=== PATIENT | female | born 1990 | race Caucasian/White ===

== ENCOUNTER 2022-01-21 13:34 | Emergency (ER) | payer MEDICAID, OTHER ==
[~2022-01-21] VITALS: Ht 157.5 cm; Wt 54.4 kg
[2022-01-21 13:52] VITALS: BP_SYST 115
[2022-01-21 14:37] LABS: BASOPHILS # (AUTO) 0.1 K/uL (0.0-0.2); BASOPHILS % (AUTO) 0.8 % (0.0-2.0); EOSINOPHILS # (AUTO) 0.5 K/uL (0.0-0.4); EOSINOPHILS % (AUTO) 4.7 % (0.0-4.0); HEMATOCRIT 37.4 % (36-48); LYMPHOCYTES # (AUTO) 3.1 K/uL (1.0-5.5); MEAN CORPUSCULAR HEMOGLOBIN 31 pg (27-31); MEAN CORPUSCULAR HGB CONC 35 % (32-36); MEAN CORPUSCULAR VOLUME 90 fL (79.0-98.0); MONOCYTES # (AUTO) 0.6 K/uL (0.0-1.0); NEUTROPHILS # (AUTO) 7.1 K/uL (1.8-7.7); NEUTROPHILS % (AUTO) 62.5 % (40.0-70.0); PLATELET COUNT (AUTO) 437 K/uL (130-430); RED BLOOD CELL COUNT(AUTO) 4.15 MIL/uL (4.2-6.2); RED CELL DISTRIBUTION WIDTH 13.1 % (9.0-15.0); WHITE BLOOD COUNT (AUTO) 11.3 K/uL (4.8-10.8)
[2022-01-21 14:43] LABS: ANION GAP 11 (5-15); CALCIUM 9.2 mg/dL (8.4-11.0); CHLORIDE 102 mmol/L (98-107); GLUCOSE 99 mg/dL (70-99); POTASSIUM 4.3 mmol/L (3.5-5.1); SODIUM SERUM 141 mmol/L (136-145); UREA NITROGEN, BLOOD 16 mg/dL (8-21)
[2022-01-21 14:43] LABS: BILIRUBIN,URINE NEGATIVE (NEGATIVE); BLOOD, URINE NEGATIVE (NEGATIVE); CLARITY/URINE CLEAR (CLEAR); COLOR,URINE YELLOW (YELLOW); GLUCOSE,URINE NEGATIVE (NEGATIVE); KETONES,URINE NEGATIVE (NEGATIVE); LEUKOCYTE ESTERASE ,URINE NEGATIVE (NEGATIVE); NITRITE, URINE NEGATIVE (NEGATIVE); PH,URINE 6.5 (5.0-8.0); PROTEIN URINE NEGATIVE (NEGATIVE); UROBILINOGEN,URINE 0.2 (0.2-1.0)
[2022-01-21 14:44] LABS: GFR AFRICAN AMERICAN 93 mL/min (>90)
[2022-01-21 14:48] LABS: ALANINE AMINOTRANSFERASE 35 U/L (12-78); ALBUMIN 3.7 g/dL (3.4-4.8); AMYLASE 63 U/L (0-100); ASPARTATE AMINOTRANSFERASE 19 U/L (10-37); LIPASE 255 U/L (73-393)
[2022-01-21 14:49] LABS: TOTAL BILIRUBIN < 0.1 mg/dL (0.0-1.0)
[2022-01-21 14:50] LABS: C-REACTIVE PROTEIN QUANT 0.3 mg/dL (0-0.5)
[2022-01-21] MEDS ORDERED: DOXY100C5 PO (16:28)
[2022-01-21] MEDS ORDERED: cefTRIAXone 500 MG VIAL ONE (16:31)
[2022-01-21] MEDS ORDERED: LIDOCAINE 1%, 20 ML MDV 20 ML ONE (16:31)
[2022-01-21] MEDS: AZITHROMYCIN 250 MG TABLET PO ONE (16:43)
[2022-01-21] MEDS: cefTRIAXone 250 MG VIAL IM ONE (16:44)
[2022-01-21 16:52] VITALS: BP_SYST 122
[2022-01-24 20:07] LABS: CHLAMYDIA TRACHOMATIS NAA Negative (Negative); NEISSERIA GONORRHOEAE NAA Negative (Negative)
== END 2022-01-21 16:52 | disposition home or self-care (01) ==
LOC: SED 13:34
DX: R10.30 Lower abdominal pain, unspecified (principal); Z88.2 Allergy status to sulfonamides
CPT/HCPCS: 36415; 74176; 76376; 80053; 81003; 81025; 82150; 83605; 83690; 84703; 85025; 86140; 87491; 87591; 96372; 99284; J0696; J2001; Q0144; 81002

== ENCOUNTER 2022-02-11 13:14 | Emergency (ER) | payer OTHER ==
[~2022-02-11] VITALS: Ht 157.5 cm; Wt 65.8 kg
[~2022-02-11 13:14] MED LIST: DOXY100C5 PO
[2022-02-11 13:20] VITALS: BP_SYST 111
--- NOTE | 2022-02-11 13:20 | NUR ---
PLACED IN ER WAITING ROOM FOR AVAILABLE BED
[2022-02-11 14:30] LABS: BILIRUBIN,URINE NEGATIVE (NEGATIVE); BLOOD, URINE NEGATIVE (NEGATIVE); CLARITY/URINE CLEAR (CLEAR); COLOR,URINE YELLOW (YELLOW); GLUCOSE,URINE NEGATIVE (NEGATIVE); KETONES,URINE NEGATIVE (NEGATIVE); LEUKOCYTE ESTERASE ,URINE NEGATIVE (NEGATIVE); NITRITE, URINE NEGATIVE (NEGATIVE); PROTEIN URINE NEGATIVE (NEGATIVE); UROBILINOGEN,URINE 0.2 (0.2-1.0)
--- NOTE | 2022-02-11 16:33 | NUR ---
placed pt in bed 8, bed lowered and locked and rails up.
--- NOTE | 2022-02-11 17:00 | NUR ---
Pt c/o sore throat and lump in throat. Pt has no acute resp distress noted. Pt is to have no narcotics. Pt in rehab.
--- NOTE | 2022-02-11 17:28 | NUR ---
ER at bedside examining patient.
[2022-02-11] MEDS ORDERED: ALBMDI INH (19:32)
[2022-02-11] MEDS ORDERED: PRO40 PO (19:32)
[2022-02-11 19:58] VITALS: BP_SYST 115
--- NOTE | 2022-02-11 19:59 | NUR ---
Patient given written and verbal discharge instructions and verbalizes understanding. ER MD Garcia discussed with patient the results and treatment provided. Patient in stable condition. ID arm band removed. Rx of Albuterol MDI and Protonix sent to pharmacy of choice. Patient educated on pain management and to follow up with PMD. Pain Scale 0/10. Opportunity for questions provided and answered. Medication side effect fact sheet provided.
== END 2022-02-11 19:59 | disposition home or self-care (01) ==
LOC: SED 13:14
DX: R13.10 Dysphagia, unspecified (principal); F17.210 Nicotine dependence, cigarettes, uncomplicated; Z88.6 Allergy status to analgesic agent; Z88.8 Allergy status to other drugs, medicaments and biological substances
CPT/HCPCS: 36415; 71046-TC; 81003; 81025; 86403; 87081; 99284